=== PATIENT | male | born 1985 | race Caucasian/White ===

== ENCOUNTER 2021-06-12 17:20 | Emergency (ER) | payer MEDICAID, OTHER ==
[~2021-06-12] VITALS: Ht 190.5 cm; Wt 78.0 kg
[2021-06-12 17:24] VITALS: BP 135/82
== END 2021-06-12 18:09 | disposition home or self-care (01) ==
LOC: ER 17:20
DX: S01.01XA Laceration without foreign body of scalp, initial encounter (principal); W26.8XXA Contact with other sharp object(s), not elsewhere classified, initial encounter; Y93.89 Activity, other specified; Y92.89 Other specified places as the place of occurrence of the external cause; Y99.8 Other external cause status
CPT/HCPCS: 12002; 70450

== ENCOUNTER 2021-06-26 16:36 | Emergency (ER) | payer MEDICAID ==
[~2021-06-26] VITALS: Ht 190.5 cm; Wt 84.8 kg
[2021-06-26 16:41] VITALS: BP 114/67
== END 2021-06-26 18:37 | disposition left against medical advice (07) ==
LOC: ER 16:36
DX: Z48.02 Encounter for removal of sutures (principal); Z53.21 Procedure and treatment not carried out due to patient leaving prior to being seen by health care provider